=== PATIENT | male | born 1960 | race Caucasian/White ===

== ENCOUNTER 2017-01-21 13:46 | Inpatient (IN) | payer OTHER ==
--- NOTE | 2017-01-21 14:17 | PDOC ---
Attending Attestation - HPI HPI: 01/21/17 16:37 56 year old male, with significant past medical history of 2 previous suicide attempts, depression, and anxiety who presents to the emergency room after a suicide attempt 2 days ago. - Physicial Exam PE: 01/21/17 16:53 Constitutional: Awake, alert, oriented. No acute distress. Head: Normocephalic. Atraumatic Eyes: PERRL. EOMI. Conjunctivae are not pale. ENT: Mucous membranes are moist and intact. Posterior pharynx without exudates or erythema. Uvula midline. Neck: Supple. Full ROM. No lymphadenopathy. Cardiovascular: Regular rate. Regular rhythm. S1, S2 regular. Distal pulses are 2+ and symmetric. Pulmonary/Chest: No evidence of respiratory distress. Clear to auscultation bilaterally No wheezing, rales or rhonchi. Abdominal: Soft and non-distended. There is no tenderness. No rebound, guarding or rigidity. No organomegaly. No palpable masses. Good bowel sounds. Back: No CVA tenderness. Musculoskeletal: No edema. No cyanosis. No clubbing. Full range of motion in all extremities. Nocalf tenderness. Radial/pedal pulses are intact and 2+ bilaterally Skin: +some ecchymosis on the forearms bilaterally. Skin is warm and dry. No petechiae. No purpura. Neurological: Alert and oriented to person, place, and time. Cranial nerves II -XII are grossly intact. Normal speech. Strength is grossly symmetric. No sensory deficits. Psychiatric: Good eye contact. Normal interaction, affect and behavior. - Medical Decision Making 01/21/17 16:[address] Chaparro Olson at [facility]. Attempted to transfer the patient to [facility], however there are no beds available at this time. Spoke with Dr. Brooks who agreed to see patient in consult tomorrow morning. 01/21/17 16:34 <Mary Rojas - Last Filed: 01/21/17 16:53> - Resident Resident Name: Samira Harrison - ED Attending Attestation I have performed the following: I have examined & evaluated the patient, The case was reviewed & discussed with the resident, I agree w/resident's findings & plan, Exceptions are as noted - Medical Decision Making 01/21/17 14:17 I, Dr. Leslie Ryder, DO, attest that this document has been prepared under my direction and personally reviewed by me in its entirety. I further attest, that it accurately reflects all work, treatment, procedures and medical decision -making performed by me. 01/21/17 15:01 a/p: 56yo male with SI -hx of depression and anxiety -hx of suicide attempt in past - associated with a -recent family sunday w suicide attempt sunday -still with plan for suicide attempt today -no hi, hallucinations, tangential thoughts -will check labs, level drugs -psychiatrist is dr. olson at [place] -case discussed with dr. brooks -will initiate transfer to [facility] for psychiatric admission, eval, treatment 1:1 01/21/17 15:47 labs reviewed pt pending psychiatric eval call placed to [facility] 01/21/17 16:30 pt willing to stay for admission until psych bed available for admission. pt voluntary. discussed again with dr. brooks who will see the patient in consult tomorrow. restart psychiatric meds. 01/21/17 16:51 case discussed with IM resident Mary - accepts pt to service under Dr. Baires. <Leslie Ryder - Last Filed: 01/21/17 17:01> Discharge Disposition - Discharge Dispostion Admit: Yes <Leslie Ryder - Last Filed: 01/21/17 17:01> - Diagnosis Suicidal behavior with attempted self-injury - Discharge Dispostion Condition at time of disposition: Fair Heart Score/ECG Review - ECG Intrepretation Comment:: 01/21/17 15:11 sinus at 63, nl axis, nl interval, no acute st/t wave findings <Leslie Ryder - Last Filed: 01/21/17 17:01>
[2017-01-21 15:10] LABS: URINE APPEARANCE CLEAR; URINE BILIRUBIN NEGATIVE (NEGATIVE); URINE BLOOD NEGATIVE (NEGATIVE); URINE COLOR YELLOW; URINE GLUCOSE (UA) NEGATIVE (NEGATIVE); URINE KETONE TRACE (NEGATIVE); URINE NITRITE NEGATIVE (NEGATIVE); URINE PROTEIN NEGATIVE (NEGATIVE); URINE UROBILINOGEN NEGATIVE mg/dL (0.2-1.0)
[2017-01-21 15:11] LABS: BASOPHIL 0.4 % (0-2.0); EOSINOPHIL 0.3 % (0-4.5); MCH 31.4 pg (25.7-33.7); MCHC 33.5 g/dl (32.0-35.9); MEAN CELL VOLUME 93.7 fl (80-96); MEAN PLT VOLUME 8.6 fl (7.5-11.1); NEUTROPHILS 70.9 % (42.8-82.8); PLATELET COUNT 149 K/MM3 (134-434); RDW 13.9 % (11.9-15.9); WHITE BLOOD COUNT 6.3 K/mm3 (4.0-10.0)
[2017-01-21 15:21] LABS: URINE MARIJUANA THC NEGATIVE ng/ml (CUTOFF=50)
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
[2017-01-21 15:25] LABS: ALCOHOL < 5.0 mg/dl (0-5)
[2017-01-21 15:25] LABS: ALBUMIN 3.5 g/dl (3.4-5.0); ANION GAP 6 (8-16); CALCIUM 8.8 mg/dL (8.5-10.1); CO2 28 mmol/L (21-32); GLUCOSE,RANDOM 77 mg/dL (74-106)
[2017-01-21 15:30] LABS: ALK PHOS 51 U/L (45-117); BILIRUBIN,TOTAL 0.5 mg/dL (0.2-1.0); SGOT/AST 9 U/L (15-37); SGPT/ALT 16 U/L (12-78); TOT PROT 7.2 g/dl (6.4-8.2)
[2017-01-21 15:41] LABS: VALPROIC ACID DEPAKOTE DEPAKAN 57.309 ug/ml (50-100)
[2017-01-21 15:42] LABS: SALICYLATE < 4.0 mg/dl (0.0-30.0)
[2017-01-21] MEDS: DIVALPROEX SODIUM 125 MG TABLET E.C. (FP) PO SCH ×2 (17:07→22:58)
[2017-01-21] MEDS ORDERED: DIVALPROEX SODIUM 500 MG TABLET E.C. ONE (17:07)
[2017-01-21 18:17] VITALS: BMI 28.1
--- NOTE | 2017-01-21 18:22 | HP ---
CHIEF COMPLAINT: suicide attempt PCP: unknown HISTORY OF PRESENT ILLNESS: 56 year old male with a past medical history of multiple suicide attempts and hypothyroidism presents to the hospital after an attempted suicide. He states that earlier in the day he attempted to jump in front of a car, which is what he has done for his previous attempts in the past. Patient is a poor historian and changes his story frequently, including his age. Patient states that his father two days ago, which made him suicidal within intent and plan. At first patient stated that his father was 46 years old, patient being 28 years old and later stated that he was in his 40s and his father was in his 70s. Age in the system is the age patient gave emergency employees. Patient states that after his previous attempts he was hospitalized at [facility] psychiatric inpatient facility. He states that his last suicide attempt was two months ago, when he also attempted to jump in front of a car. Patient states that his outpatient Psychiatrist is Dr. Lamas? Patient denies any medical complaints, including chest pain, SOB, headache, nausea, vomiting, diarrhea, fevers, chills. Patient denies smoking, drinking, or doing any illicit drugs. Besides depression, patient denies psychiatric complaints such as auditory/ visual hallucinations, ruchi, paranoia. ER course was notable for: (1) Dr. Arceo consulted (2) (3) Recent Travel: PAST MEDICAL HISTORY: Suicide attempts x3 PAST SURGICAL HISTORY: Social History: Smoking: unknown Alcohol: unknown Drugs: none Family History: Allergies aspirin Allergy (Verified 01/21/17 13:56) Nausea fish derived Allergy (Verified 01/21/17 13:57) Rash Penicillins Allergy (Verified 01/21/17 13:56) Nausea iodine Adverse Reaction (Verified 01/21/17 13:56) HOME MEDICATIONS: Home Medications Medication Instructions Recorded Divalproex [Depakote -] 500 mg PO BID 01/21/17 Haloperidol [Haldol -] 5 mg PO BID 01/21/17 [place] Carbonate [Lithobid] 300 mg PO DAILY 01/21/17 REVIEW OF SYSTEMS CONSTITUTIONAL: Absent: fever, chills, diaphoresis, generalized weakness, malaise, loss of appetite, weight change HEENT: Absent: rhinorrhea, nasal congestion, throat pain, throat swelling, difficulty swallowing, mouth swelling, ear pain, eye pain, visual changes CARDIOVASCULAR: Absent: chest pain, syncope, palpitations, irregular heart rate, lightheadedness , peripheral edema RESPIRATORY: Absent: cough, shortness of breath, dyspnea with exertion, orthopnea, wheezing, stridor, hemoptysis GASTROINTESTINAL: Absent: abdominal pain, abdominal distension, nausea, vomiting, diarrhea, constipation, melena, hematochezia GENITOURINARY: Absent: dysuria, frequency, urgency, hesitancy, hematuria, flank pain, genital pain MUSCULOSKELETAL: Absent: myalgia, arthralgia, joint swelling, back pain, neck pain SKIN: Absent: rash, itching, pallor HEMATOLOGIC/IMMUNOLOGIC: Absent: easy bleeding, easy bruising, lymphadenopathy, frequent infections ENDOCRINE: Absent: unexplained weight gain, unexplained weight loss, heat intolerance, cold intolerance NEUROLOGIC: Absent: headache, focal weakness or paresthesias, dizziness, unsteady gait, seizure, mental status changes, bladder or bowel incontinence PSYCHIATRIC: depression, suicidal Absent: anxiety, hallucinations. PHYSICAL EXAMINATION Vital Signs - 24 hr 01/21/17 01/21/17 13:52 17:56 Temperature 98.3 F 97.8 F Pulse Rate 84 Pulse Rate [ 79 Left Apical] Respiratory 20 18 Rate Blood Pressure 132/83 Blood Pressure 115/78 [Left Arm] O2 Sat by Pulse 96 99 Oximetry (%) GENERAL: Awake, alert, and fully oriented, in no acute distress. HEAD: Normal with no signs of trauma. EYES: Pupils equal, round and reactive to light, extraocular movements intact, sclera anicteric, conjunctiva clear. No lid lag. EARS, NOSE, THROAT: Ears normal, nares patent, oropharynx clear without exudates. Moist mucous membranes. NECK: Normal range of motion, supple without lymphadenopathy, JVD, or masses. LUNGS: Breath sounds equal, clear to auscultation bilaterally. No wheezes, and no crackles. No accessory muscle use. HEART: Regular rate and rhythm, normal S1 and S2 without murmur, rub or gallop. ABDOMEN: Soft, nontender, not distended, normoactive bowel sounds, no guarding, no rebound, no masses. No hepatomegaly or splenomegaly. MUSCULOSKELETAL: Normal range of motion at all joints. No bony deformities or tenderness. No CVA tenderness. UPPER EXTREMITIES: 2+ pulses, warm, well-perfused. No cyanosis. No clubbing. No peripheral edema. LOWER EXTREMITIES: 2+ pulses, warm, well-perfused. No calf tenderness. No peripheral edema. NEUROLOGICAL: Cranial nerves II-XII intact. Normal speech. Normal gait. PSYCHIATRIC: Cooperative. Good eye contact. Appropriate mood and affect. SKIN: Warm, dry, normal turgor, no rashes or lesions noted, normal capillary refill. Laboratory Results - last 24 hr 01/21/17 01/21/17 01/21/17 14:46 14:46 14:46 WBC RBC Hgb Hct MCV MCH MCHC RDW Plt Count MPV Neutrophils % Lymphocytes % Monocytes % Eosinophils % Basophils % Sodium 142 Potassium 3.8 Chloride 108 H Carbon Dioxide 28 Anion Gap 6 L BUN 19 H Creatinine 1.0 Creat Clearance w eGFR > 60 Random Glucose 77 Calcium 8.8 Magnesium 2.0 Total Bilirubin 0.5 AST 9 L ALT 16 Alkaline Phosphatase 51 Total Protein 7.2 Albumin 3.5 Urine Color Yellow Urine Appearance Clear Urine pH 6.0 Ur Specific [place] 1.015 Urine Protein Negative Urine Glucose (UA) Negative Urine Ketones Trace H Urine Blood Negative Urine Nitrite Negative Urine Bilirubin Negative Urine Urobilinogen Negative Salicylates Opiates Screen Negative Methadone Screen Negative Acetaminophen Barbiturate Screen Negative Valproic Acid Phencyclidine Screen Negative Ur Amphetamines Screen Negative MDMA (Ecstasy) Screen Negative Benzodiazepines Screen Negative Cocaine Screen Negative U Marijuana (THC) Screen Negative Alcohol, Quantitative 01/21/17 01/21/17 01/21/17 14:46 15:00 15:00 WBC 6.3 RBC 4.10 Hgb 12.9 Hct 38.5 MCV 93.7 MCH 31.4 MCHC 33.5 RDW 13.9 Plt Count 149 MPV 8.6 Neutrophils % 70.9 Lymphocytes % 21.5 Monocytes % 6.9 Eosinophils % 0.3 Basophils % 0.4 Sodium Potassium Chloride Carbon Dioxide Anion Gap BUN Creatinine Creat Clearance w eGFR Random Glucose Calcium Magnesium Total Bilirubin AST ALT Alkaline Phosphatase Total Protein Albumin Urine Color Urine Appearance Urine pH Ur Specific [place] Urine Protein Urine Glucose (UA) Urine Ketones Urine Blood Urine Nitrite Urine Bilirubin Urine Urobilinogen Salicylates < 4.0 Opiates Screen Methadone Screen Acetaminophen < 2.000 L Barbiturate Screen Valproic Acid 57.309 Phencyclidine Screen Ur Amphetamines Screen MDMA (Ecstasy) Screen Benzodiazepines Screen Cocaine Screen U Marijuana (THC) Screen Alcohol, Quantitative < 5.0 ASSESSMENT/PLAN: 56 year old patient with a past medical history of suicide attempts x3 and hypothyroidism is admitted to the hospital for suicide attempt #3. #Suicide Attempt: -1:1 observation -no metal silverware -obtain lithium level, redose lithium -continue haldol 5mg BID -continue depakote 500mg BID -Dr. Arceo consult appreciated #Hypothyroidism: -measure TSH level in AM -unknown dose of levothyroxine at home, will need to confirm medications tomorrow #FEN -No standing fluids -Regular diet -Check electrolytes in AM, WNL today #Prophylaxis -Heparin 5000 SubQ TID #Disposition -Admit to med surg Visit type - Emergency Visit Emergency Visit: Yes ED Registration Date: 01/21/17 Care time: The patient presented to the Emergency Department on the above date and was hospitalized for further evaluation of their emergent condition. - New Patient This patient is new to me today: Yes Date on this admission: 01/21/17 - Critical Care Critical Care patient: No
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
[2017-01-21 21:46] LABS: URINE LEUK ESTERASE Negative (NEGATIVE)
[2017-01-21] MEDS: HALOPERIDOL 5 MG TABLET (FP) PO SCH (22:58)
[2017-01-21] MEDS: HEPARIN NA (PORCINE) 5,000 UNITS/ML 1ML VIAL SQ SCH (22:59)
[2017-01-22] MEDS: HEPARIN NA (PORCINE) 5,000 UNITS/ML 1ML VIAL SQ SCH ×3 (06:01→23:26)
[2017-01-22] MEDS ORDERED: PT OWN MED DRAWER 7, Y5N ONE (09:23)
[2017-01-22] MEDS: HALOPERIDOL 5 MG TABLET (FP) PO SCH ×2 (10:32→23:25)
[2017-01-22] MEDS: DIVALPROEX SODIUM 500 MG TABLET E.C. PO SCH ×2 (10:33→23:25)
--- NOTE | 2017-01-22 13:27 | EKG ---
Test Reason : Blood Pressure : / mmHG Vent. Rate : 063 BPM Atrial Rate : 063 BPM P-R Int : 154 ms QRS Dur : 082 ms QT Int : 388 ms P-R-T Axes : 052 079 052 degrees QTc Int : 397 ms NORMAL SINUS RHYTHM EARLY REPOLARIZATION NORMAL ECG NO PREVIOUS ECGS AVAILABLE Confirmed by NICKOLAS GONZALES MD ([id number]) on 01/22/2017 1:26:47 PM Referred By: Confirmed By:NICKOLAS GONZALES MD
--- NOTE | 2017-01-22 13:36 | PN ---
Teaching Attending Note Name of Resident: Robert Doe ATTENDING PHYSICIAN STATEMENT I saw and evaluated the patient. I reviewed the resident's note and discussed the case with the resident. I agree with the resident's findings and plan as documented. SUBJECTIVE:asymptomatic. no recurrent thoughts of self-harm. denies Cp, SOB, fever, chills, N/V/C/D OBJECTIVE: Last Vital Signs Temp Pulse Resp BP Pulse Ox 98.8 F 72 18 118/89 96 01/22/17 10:29 01/22/17 10:29 01/22/17 10:29 01/22/17 10:29 01/22/17 09:00 General flat affect ASSESSMENT AND PLAN: 56yo M with PMH major depression with multiple suicide attempts and hypothyroid presented to the ER after suicidal attempt 1. Suicidal attempt-currently stable. no recurrent thought. awaiting psych recommendations. 2 PC committed. on 1:1 observation. awaiting bed availability at [facility]. confirm and hten re-start home medications 2. Hypothyroid- cont LT4 3. DVT ppx- hep sq 4. pt is medically stable for inpatient psychiatric care.
--- NOTE | 2017-01-22 14:07 | CON.PSY ---
Psychiatry Consult Chief Complaint: My fatherv suddenly on Sunday from Brain Tumor, I feel very depressred. I want to kill myself , I want to jump in front of a car. Patient has a long Psychaitric Illness, currantly being treayed at [facility] in [place], [place] by . Patient was discharged a month ago after a month long Hospitalization. Symptoms: reports: Depressed Mood, Anhedonia, Worthlessness/Guilt, Suicidality, Self destructive thoughts, Sleep Disturbance - Previous Psychiatric Treatment Outpatient: Less than 6 mos ago Inpatient: 2 or more prior admissions - Reason for Previous Treatment Reason for Previous Treatment: Major Depression, Suicidal Attempt/Behavior, Psychotic Episode - Current Medications Current Medications: Active Medications Divalproex Sodium (Depakote -) 500 mg PO BID REPLACED BY [facility] Last Admin: 01/22/17 10:33 Dose: 500 mg Haloperidol (Haldol -) 5 mg PO BID REPLACED BY [facility] Last Admin: 01/22/17 10:32 Dose: 5 mg Heparin Sodium (Porcine) (Heparin -) 5,000 unit SQ TID REPLACED BY [facility] Last Admin: 01/22/17 06:01 Dose: 5,000 unit - Allergies Allergies: Allergies Allergy/AdvReac Type Severity Reaction Status Date / Time aspirin Allergy Nausea Verified 01/21/17 13:56 Fish Containing Products Allergy Verified 01/22/17 12:11 fish derived Allergy Rash Verified 01/21/17 13:57 Penicillins Allergy Nausea Verified 01/21/17 13:56 iodine AdvReac Verified 01/21/17 13:56 - Current Living Status Usual Living Arrangement: Alone - Current Mental Status Evaluation Appearance: Well Groomed Attitude: Cooperative - Affect Affect: Constrictive Appropriateness: Appropriate to Content - Mood Mood: Depressed - Speech/Language Expressive: Coherent - Psychomotor Activity Psychomotor Activity: Slowed - Thought Process Thought Process: Intact - Thought Content Hallucinations: Absent Delusions: Absent - Self Perception Self Perception: No Impairment - Cognition Attention: Alert Orientation: Time Memory, Immediate Recall: Intact Memory, Short Term: 2/3 Memory, Remote with Promptin/3 - Concentration Serial Sevens Intact: Yes Simple Calculations Intact: Yes - Abstraction Proverb Interpretation: Intact Judgement: Severely Impaired - Insight Insight: Impaired - Impulse Control Impulse Control: Severly Impaired - Suicidal Ideation Suicidal Ideation: Yes (wants to jump in front pof a car and kill himself.) - Homicidal Ideation Homicidal Ideation: No Assessment/Plan 1) Continue with 1:! 2) Patient needs In Patient Psych Hospitalization for Suicidal PLans. 3) Continue with Psych meds.
--- NOTE | 2017-01-22 14:32 | PN ---
Physical Exam: SUBJECTIVE: Patient seen and examined at bedside. No acute complaints. States that he does not have thoughts of hurting himself or others. OBJECTIVE: Vital Signs Period Temp Pulse Resp BP Sys/[place]udd[place]eston Pulse Ox Last 24 Hr 97.8 F-98.8 F 52-79 18-61 100-153/65-112 96-99 GENERAL: The patient is awake, alert, and fully oriented, in no acute distress. HEAD: Normal with no signs of trauma. EYES: PERRL, extraocular movements intact, sclera anicteric, conjunctiva clear. No ptosis. ENT: Ears normal, nares patent, oropharynx clear without exudates, moist mucous membranes. NECK: Trachea midline, full range of motion, supple. LUNGS: Breath sounds equal, clear to auscultation bilaterally, no wheezes, no crackles, no accessory muscle use. HEART: Regular rate and rhythm, S1, S2 without murmur, rub or gallop. ABDOMEN: Soft, nontender, nondistended, normoactive bowel sounds, no guarding, no rebound, no hepatosplenomegaly, no masses. EXTREMITIES: 2+ pulses, warm, well-perfused, no edema. NEUROLOGICAL: Cranial nerves II through XII grossly intact. Normal speech, gait not observed. PSYCH: Normal mood, normal affect. SKIN: Warm, dry, normal turgor, no rashes or lesions noted Laboratory Results - last 24 hr 01/21/17 01/21/17 01/21/17 14:46 14:46 14:46 WBC RBC Hgb Hct MCV MCH MCHC RDW Plt Count MPV Neutrophils % Lymphocytes % Monocytes % Eosinophils % Basophils % Sodium 142 Potassium 3.8 Chloride 108 H Carbon Dioxide 28 Anion Gap 6 L BUN 19 H Creatinine 1.0 Creat Clearance w eGFR > 60 Random Glucose 77 Calcium 8.8 Magnesium 2.0 Total Bilirubin 0.5 AST 9 L ALT 16 Alkaline Phosphatase 51 Total Protein 7.2 Albumin 3.5 Urine Color Yellow Urine Appearance Clear Urine pH 6.0 Ur Specific [place] 1.015 Urine Protein Negative Urine Glucose (UA) Negative Urine Ketones Trace H Urine Blood Negative Urine Nitrite Negative Urine Bilirubin Negative Urine Urobilinogen Negative Ur Leukocyte Esterase Negative Salicylates Opiates Screen Negative Methadone Screen Negative Acetaminophen Barbiturate Screen Negative Valproic Acid Phencyclidine Screen Negative Ur Amphetamines Screen Negative MDMA (Ecstasy) Screen Negative Benzodiazepines Screen Negative Cocaine Screen Negative U Marijuana (THC) Screen Negative Alcohol, Quantitative 01/21/17 01/21/17 01/21/17 14:46 15:00 15:00 WBC 6.3 RBC 4.10 Hgb 12.9 Hct 38.5 MCV 93.7 MCH 31.4 MCHC 33.5 RDW 13.9 Plt Count 149 MPV 8.6 Neutrophils % 70.9 Lymphocytes % 21.5 Monocytes % 6.9 Eosinophils % 0.3 Basophils % 0.4 Sodium Potassium Chloride Carbon Dioxide Anion Gap BUN Creatinine Creat Clearance w eGFR Random Glucose Calcium Magnesium Total Bilirubin AST ALT Alkaline Phosphatase Total Protein Albumin Urine Color Urine Appearance Urine pH Ur Specific [place] Urine Protein Urine Glucose (UA) Urine Ketones Urine Blood Urine Nitrite Urine Bilirubin Urine Urobilinogen Ur Leukocyte Esterase Salicylates < 4.0 Opiates Screen Methadone Screen Acetaminophen < 2.000 L Barbiturate Screen Valproic Acid 57.309 Phencyclidine Screen Ur Amphetamines Screen MDMA (Ecstasy) Screen Benzodiazepines Screen Cocaine Screen U Marijuana (THC) Screen Alcohol, Quantitative < 5.0 Active Medications Generic Name Dose Route Start Last Admin Trade Name Freq PRN Reason Stop Dose Admin Divalproex Sodium 500 mg 01/22/17 10:00 01/22/17 10:33 Depakote - PO 500 mg BID KARLOS Administration Haloperidol 5 mg 01/21/17 22:00 01/22/17 10:32 Haldol - PO 5 mg BID KARLOS Administration Heparin Sodium (Porcine) 5,000 unit 01/21/17 22:00 01/22/17 06:01 Heparin - SQ 5,000 unit TID KARLOS Administration ASSESSMENT/PLAN: 56 year old patient with a past medical history of suicide attempts x3 and hypothyroidism is admitted to the hospital for suicide attempt #3. #Suicide Attempt: -1:1 observation -no metal silverware -restart lithium -continue haldol 5mg BID -continue depakote 500mg BID -Dr. Arceo consult appreciated #Hypothyroidism: -measure TSH level in AM -unknown dose of levothyroxine at home, pharmacy unable to find patient #FEN -No standing fluids -Regular diet -Check electrolytes in AM, WNL today #Prophylaxis -Heparin 5000 SubQ TID #Disposition -continue to monitor Visit type - Emergency Visit Emergency Visit: No - New Patient This patient is new to me today: No - Critical Care Critical Care patient: No
[2017-01-22] MEDS: LITHIUM CARBONATE 300 MG CAPSULE (FP) PO SCH (18:25)
[2017-01-23] MEDS: HEPARIN NA (PORCINE) 5,000 UNITS/ML 1ML VIAL SQ SCH ×2 (06:45→15:38)
--- NOTE | 2017-01-23 08:29 | PN ---
Physical Exam: SUBJECTIVE: Patient seen and examined at bedside. Patient denies any acute complaints. OBJECTIVE: Vital Signs Period Temp Pulse Resp BP Sys/Huddleston Pulse Ox Last 24 Hr 98.4 F-99.1 F 49-72 14-20 106-118/63-89 96-96 GENERAL: The patient is awake, alert, and fully oriented, in no acute distress. HEAD: Normal with no signs of trauma. EYES: PERRL, extraocular movements intact, sclera anicteric, conjunctiva clear. No ptosis. ENT: Ears normal, nares patent, oropharynx clear without exudates, moist mucous membranes. NECK: Trachea midline, full range of motion, supple. LUNGS: Breath sounds equal, clear to auscultation bilaterally, no wheezes, no crackles, no accessory muscle use. HEART: Regular rate and rhythm, S1, S2 without murmur, rub or gallop. ABDOMEN: Soft, nontender, nondistended, normoactive bowel sounds, no guarding, no rebound, no hepatosplenomegaly, no masses. EXTREMITIES: 2+ pulses, warm, well-perfused, no edema. NEUROLOGICAL: Cranial nerves II through XII grossly intact. Normal speech, gait not observed. PSYCH: Normal mood, normal affect. SKIN: Warm, dry, normal turgor, no rashes or lesions noted Active Medications Generic Name Dose Route Start Last Admin Trade Name Freq PRN Reason Stop Dose Admin Divalproex Sodium 500 mg 01/22/17 10:00 01/22/17 23:25 Depakote - PO 500 mg BID KARLOS Administration Haloperidol 5 mg 01/21/17 22:00 01/22/17 23:25 Haldol - PO 5 mg BID KARLOS Administration Heparin Sodium (Porcine) 5,000 unit 01/21/17 22:00 01/23/17 06:45 Heparin - SQ 5,000 unit TID KARLOS Administration [place] Carbonate 300 mg 01/22/17 16:30 01/22/17 18:25 Eskalith - PO 300 mg DAILY KARLOS Administration ASSESSMENT/PLAN: 56 year old patient with a past medical history of suicide attempts x3 and hypothyroidism is admitted to the hospital for suicide attempt #3. #Suicide Attempt: -1:1 observation -no metal silverware -continue lithium 300mg QD -continue haldol 5mg BID -continue depakote 500mg BID -Dr. Arceo consult appreciated -Patient got a bed at [facility] #Hyperkalemia -repeat level #Hypothyroidism: -f/u TSH level -unknown dose of levothyroxine at home, pharmacy unable to find patient #FEN -No standing fluids -Regular diet -Check electrolytes in AM, WNL today #Prophylaxis -Heparin 5000 SubQ TID #[facility] potassium repeat Visit type - Emergency Visit Emergency Visit: No - New Patient This patient is new to me today: No - Critical Care Critical Care patient: No
[2017-01-23] MEDS ORDERED: PT OWN MED DRAWER 7, Y5N ONE (10:57)
[2017-01-23] MEDS: LITHIUM CARBONATE 300 MG CAPSULE (FP) PO SCH (10:58)
[2017-01-23] MEDS: DIVALPROEX SODIUM 500 MG TABLET E.C. PO SCH (10:58)
[2017-01-23] MEDS: HALOPERIDOL 5 MG TABLET (FP) PO SCH (10:58)
[2017-01-23 11:02] LABS: ANION GAP 4 (8-16); CALCIUM 8.7 mg/dL (8.5-10.1); CO2 30 mmol/L (21-32); CREATININE 1.1 mg/dL (0.7-1.3); GLUCOSE,RANDOM 82 mg/dL (74-106)
[2017-01-23 11:10] LABS: THYROID STIMULATING HORMONE 3.94 uIU/ml (0.358-3.74)
[2017-01-23] MEDS ORDERED: SODIUM POLYSTYRENE SULFONATE 15 GM/60 ML BOTTLE PO ONE (12:03)
--- NOTE | 2017-01-23 13:15 | DS ---
Physical Exam: HOSPITAL COURSE: Date of Admission:01/21/17 56 year old patient with a past medical history of suicide attempts x3 and hypothyroidism is admitted to the hospital for suicide attempt #3. Patient stated that he has tried to jump in front of a car multiple times in the past. He states that this time was because his father 2 days prior. The previous times he was admitted to inpatient psychiatry at [facility]. Patient was admitted to the hospital until a bed became available. Patient was seen by Dr. Arceo. Patient has a history of hypothyroidism and his TSH was elevated in the hospital. Patient cannot recall the correct dose of his medication and the pharmacy he goes to has no records of him there. T4/T3 levels are pending. Patient was transferred to [facility] on 01/23/17 Date of Discharge: 01/23/17 Minutes to complete discharge: 25 Discharge Summary Reason For Visit: SUICIDAL BEHAVIOR W/ ATTEMPTED SELF INJURY Current Active Problems Suicidal behavior with attempted self-injury (Acute) Condition: Fair - Instructions Disposition: TRANSFER ACUTE CARE/OTHER HOSP - Home Medications Comprehensive Discharge Medication List: Ambulatory Orders Divalproex [Depakote -] 500 mg PO BID 01/21/17 Haloperidol [Haldol -] 5 mg PO BID 01/21/17 [place] Carbonate [Lithobid] 300 mg PO DAILY 01/21/17 This patient is new to me today: No Emergency Visit: No Critical Care patient: No - Discharge Referral Referred to [facility] No
[2017-01-23 13:30] VITALS: BP 119/81; PULSE 55; TEMP 99
--- NOTE | 2017-01-23 13:55 | PN ---
Teaching Attending Note Name of Resident: Robert Doe ATTENDING PHYSICIAN STATEMENT Time of evaluation: 10:15 AM I saw and evaluated the patient. I reviewed the resident's note and discussed the case with the resident. I agree with the resident's findings and plan as documented. SUBJECTIVE: patient seen and examined, denies active suicidal ideation or plan, feels better , no new complaints. OBJECTIVE: Vital Signs Period Temp Pulse Resp BP Sys/Huddleston Pulse Ox Last 24 Hr 98.3 F-99.1 F 49-87 14-20 106-119/63-81 96-96 Intake & Output 01/20/17 01/21/17 01/22/17 01/23/17 23:59 23:59 23:59 23:59 Intake Total 120 2340 520 Balance 120 2340 520 Weight 185 lb General: sitting in bed in no acute distress CVS:S1S2 regular Chest: CTAB, no rales or wheezing abdomen: soft, NT Home Medication List Medication Instructions Recorded Confirmed Type Divalproex [Depakote -] 500 mg PO BID 01/21/17 01/21/17 History Haloperidol [Haldol -] 5 mg PO BID 01/21/17 01/21/17 History [place] Carbonate [Lithobid] 300 mg PO DAILY 01/21/17 01/21/17 History Active Medications Generic Name Dose Route Start Last Admin Trade Name [place] PRN Reason Stop Dose Admin Divalproex Sodium 500 mg 01/22/17 10:00 01/23/17 10:58 Depakote - PO 500 mg BID KARLOS Administration Haloperidol 5 mg 01/21/17 22:00 01/23/17 10:58 Haldol - PO 5 mg BID KARLOS Administration Heparin Sodium (Porcine) 5,000 unit 01/21/17 22:00 01/23/17 06:45 Heparin - SQ 5,000 unit TID KARLOS Administration [place] Carbonate 300 mg 01/22/17 16:30 01/23/17 10:58 Eskalith - PO 300 mg DAILY KARLOS Administration Laboratory Results - last 24 hr 01/23/17 01/23/17 01/23/17 10:07 10:30 12:40 Sodium 143 Potassium 5.2 H D 4.7 Chloride 109 H Carbon Dioxide 30 Anion Gap 4 L BUN 15 D Creatinine 1.1 Random Glucose 82 Calcium 8.7 TSH 3.94 H Free T4 0.99 ASSESSMENT AND PLAN: -Major depressive disorder -Suicidal ideation -Hyperkalemia, suspect hemolyzed sample, repeat WNL (without interventio) -Hypothyroidism PLan: Inpatient psych bed available. TSH noted, T3 and T4 sent, to be followed at the facility with outpatient endocrine follow up in 1 week. D/c to inpatient psych today, plan discussed with patient.
== END 2017-01-23 14:52 | disposition short-term general hospital (02) | DRG 756 ==
LOC: JER 13:46 → JERBED 17:00 → J5S 20:24
PROVIDERS: ADMIT Internal Medicine; ATTEND Hospitalist
DX: R45.851 Suicidal ideations (principal); E03.9 Hypothyroidism, unspecified; F41.8 Other specified anxiety disorders; E87.5 Hyperkalemia; T14.91XA Suicide attempt, initial encounter; Y93.89 Activity, other specified; Y92.89 Other specified places as the place of occurrence of the external cause; Y99.8 Other external cause status; Z59.0 Homelessness; Z91.5 Personal history of self-harm
CPT/HCPCS: 36415; 80048; 80053; 80164; 80178; 80307; 81003; 83735; 84132; 84439; 84443; 84481; 85025; 93005; 93010; 99284-25; J1644